=== PATIENT | female | born 1970 | race Caucasian/White ===

== ENCOUNTER → 2018-05-25 13:18 | Outpatient (CLI) | payer OTHER, SELFPAY ==
--- NOTE | 2018-05-25 | DI.MG.S_ITS ---
BILATERAL DIGITAL SCREENING MAMMOGRAM 3D/2D WITH CAD: 05/25/2018 CLINICAL: Routine screening. Comparison is made to exams dated: 12/31/2014 mammogram, 07/15/2016 mammogram - [facility], and 06/12/2013 mammogram - [facility]. The tissue of both breasts is extremely dense, which lowers the sensitivity of mammography. Current study was also evaluated with a Computer Aided Detection (CAD) system. No significant masses, calcifications, or other findings are seen in either breast. There has been no significant interval change. IMPRESSION: NEGATIVE There is no mammographic evidence of malignancy. A 1 year screening mammogram is recommended. This exam was interpreted at Station ID: [id number]. NOTE: For mammograms, a report in lay terms will be sent to the patient. Approximately 15% of breast malignancies will not be visualized mammographically. In the management of a palpable breast mass, a negative mammogram must not discourage biopsy of a clinically suspicious lesion. Electronically Signed By: Ese dey/ruth:05/25/2018 16:11:25 copy to: MARCEL LUEVANO letter sent: Normal Exam ACR BI-RADS Category 1: Negative [id number]
== END ==
PROVIDERS: Family Provider Internal Medicine; PCP Internal Medicine; Visit Provider General Practice
DX: Z12.31 Encounter for screening mammogram for malignant neoplasm of breast (principal)
CPT/HCPCS: 77063; 77067

== ENCOUNTER → 2020-09-17 08:31 | Outpatient (CLI) | payer OTHER, SELFPAY | PROVIDERS: Family Provider Internal Medicine; PCP Internal Medicine; Referring Provider Internal Medicine; Visit Provider Internal Medicine | DX: Z12.31 Encounter for screening mammogram for malignant neoplasm of breast (principal); Z53.9 Procedure and treatment not carried out, unspecified reason ==

== ENCOUNTER → 2021-10-12 14:28 | Outpatient (CLI) | payer OTHER, SELFPAY | PROVIDERS: Family Provider Internal Medicine; PCP Internal Medicine; Visit Provider Physician Assistant | DX: N34.3 Urethral syndrome, unspecified (principal) | CPT/HCPCS: 87077; 87086; 87186 ==

== ENCOUNTER 2022-06-02 11:00 | Emergency (ER) | payer OTHER, SELFPAY ==
[2022-06-02] VITALS (16 sets, daily range): BP systolic 129–150; BP diastolic 87–99; PULSE 67–89; RESP 15–24; TEMP 36.8; O2SAT 95–98; BMI 25.4
--- NOTE | 2022-06-02 11:09 | DI.RAD.S_ITS ---
PROCEDURE: XR CHEST 1V INDICATIONS: chest pain TECHNIQUE: One view of the chest was acquired. COMPARISON: None. FINDINGS: Surgical changes and devices: None. Lungs and pleura: Lungs are clear. No pleural effusions or pneumothorax. Mediastinum: Mediastinal contours appear normal. Heart size is normal. Bones and chest wall: No suspicious bony lesions. Overlying soft tissues appear unremarkable. IMPRESSION: No acute cardiopulmonary findings. Dictated by: Ese Freedman M.D. on 06/02/2022 at 11:34 Approved by: Ese Freedman M.D. on 06/02/2022 at 11:34
[2022-06-02] MEDS: ASPIRIN 81 MG CHEW TAB 324 MG PO (11:39)
[2022-06-02 11:46] LABS: Add Manual Diff / Slide Review NO; Basophils Absolute Auto 100 /uL (0-100); Basophils Percent Auto 1.2 % (0-2); Eosinophils Absolute Auto 200 /uL (0-450); Eosinophils Percent Auto 3.4 % (2-4); Hematocrit 46.1 % (36-46); Hemoglobin 15.9 g/dL (12.0-16.0); Lymphocytes Absolute Auto 2100 /uL (1100-4500); Lymphocytes Percent Auto 31.9 % (25-40); Mean Corpuscular HGB Conc 34.5 % (30-36); Mean Corpuscular Hemoglobin 30.3 PG (26-34); Mean Corpuscular Volume 87.8 fL (80-100); Monocytes Absolute Auto 600 /uL (0-900); Monocytes Percent Auto 9.1 % (3-14); Neutrophils Absolute Auto 3500 /uL (1500-7000); Neutrophils Percent Auto 54.4 % (50-75); Platelet Count 254 X10^3/uL (150-400); Red Blood Cell Count 5.26 X10^6/uL (4.0-5.2); Red Cell Distribution Width 14.5 % (11.6-14.8); White Blood Cell Count 6.5 X10^3/uL (4.5-11.0)
[2022-06-02 12:13] LABS: INR 0.9 (0.9-1.3); Prothrombin Time 10.8 SECONDS (10.1-12.7)
[2022-06-02 12:16] LABS: PTT Partial Thromboplastin Tim 38 SECONDS (26-36)
[2022-06-02 12:21] LABS: Alanine Aminotransferase 17 IU/L (<35); Albumin 4.4 g/dL (3.5-5.0); Albumin Globulin Ratio 1.3 (1.0-2.8); Alkaline Phosphatase 109 U/L (38-126); Aspartate Aminotransferase 26 IU/L (14-36); BUN Creatinine Ratio 15.5 (6-22); Bilirubin Total 0.5 mg/dL (0.2-1.3); Blood Urea Nitrogen 11 mg/dL (7-17); Calcium 8.6 mg/dL (8.4-10.2); Carbon Dioxide 25 mmol/L (22-32); Chloride 106 mmol/L (98-107); Creatine Kinase 65 U/L (30-135); Estimated Glomerular Filt Rate > 60 mL/min (>60); Globulin 3.5 g/dL (1.7-4.1); Glucose 93 mg/dL (70-100); HEMOLYSIS < 15 (0-50); Lipase 188 U/L (23-300); Potassium 3.9 mmol/L (3.4-5.1); Sodium 139 mmol/L (137-145); Total Protein 7.9 g/dL (6.3-8.2)
[2022-06-02 12:31] LABS: Troponin I < 0.012 ng/mL (0.01-0.034)
[2022-06-02 12:40] LABS: COVID19 -Nasal RAPID Negative (Negative)
[2022-06-02 14:32] LABS: Troponin I < 0.012 ng/mL (0.01-0.034)
--- NOTE | 2022-06-07 09:41 | ED_ITS ---
HPI - Chest Pain General Chief Complaint: Chest Pain Stated Complaint: thinks she is having a heart or aniexty attack Time Seen by Provider: 06/02/22 11:32 Source: patient Mode of arrival: Ambulatory Limitations: no limitations History of Present Illness HPI narrative: 52-year-old female presenting with chest pain that she describes as a central, nonexertional, nonradiating pain. Patient describes symptoms coming on at rest. Concern for primary cardiac process or anxiety. Patient does have a history of anxiety in the past. No prior known cardiac disease. Symptoms significantly improved on presentation to the emergency department. Related Data Previous Rx's Medication Instructions Recorded diazepam 5 mg tablet (Valium) 5 mg PO HSP PRN #14 tabs 07/16/17 ibuprofen 600 mg tablet 600 mg PO Q8HP PRN #20 tabs 07/16/17 phenazopyridine 200 mg tablet 200 mg PO TID PRN pain 6 doses #6 10/12/21 (Pyridium) tabs Allergies Allergy/AdvReac Type Severity Reaction Status Date / Time fluticasone [From Flonase] AdvReac Intermediate Nose Bleed Verified 06/02/22 11:13 bacitracin AdvReac Unknown Verified 06/02/22 11:13 tree tea oil AdvReac Unknown Uncoded 06/02/22 11:08 Patient History Social History Smoking Status: Former smoker Smoking Status: Former smoker alcohol intake frequency: holidays/special occasions only Substance Use Type: does not use Exam Narrative Exam Narrative: Vitals reviewed. Nursing note reviewed Constitutional: interactive HENT: Moist mucous membranes EYES: No scleral icterus NECK: no masses CV: Well perfused peripherally, no cyanosis present PULM: Unlabored respirations, symmetric chest rise ABD: Non-distended MS: No gross deformities, no asymmetric edema noted SKIN: Warm and dry. PSYCH: Appropriate affect NEURO: Follows simple commands, moves extremities, interactive with exam Initial Vital Signs Initial Vital Signs: Vital Signs Temperature 98.3 F 06/02/22 11:03 Pulse Rate 89 06/02/22 11:03 Respiratory Rate 20 06/02/22 11:03 Blood Pressure 150/99 H 06/02/22 11:03 Pulse Oximetry 98 06/02/22 11:03 Oxygen Delivery Method Room Air 06/02/22 11:03 Course Orders Ordered: Discontinued Medications Aspirin (Aspirin 81 Mg Chew Tab) 324 mg PO NOW ONE Stop: 06/02/22 11:10 Last Admin: 06/02/22 11:39 Dose: 324 mg Documented By: KRISTI MDM - Chest Pain Lab Data 06/02/22 11:37 06/02/22 11:37 Labs: Lab Results 06/02/22 06/02/22 06/02/22 Range/Units 11:37 11:37 11:45 WBC 6.5 (4.5-11.0) X10^3/uL RBC 5.26 H (4.0-5.2) X10^6/uL Hgb 15.9 (12.0-16.0) g/dL Hct 46.1 H (36-46) % MCV 87.8 (80-100) fL MCH 30.3 (26-34) PG MCHC 34.5 (30-36) % RDW 14.5 (11.6-14.8) % Plt Count 254 (150-400) X10^3/uL Neut % (Auto) 54.4 (50-75) % Lymph % (Auto) 31.9 (25-40) % [place] % (Auto) 9.1 (3-14) % Eos % (Auto) 3.4 (2-4) % Baso % (Auto) 1.2 (0-2) % Neut # (Auto) 3500 (2282-5291) /uL Lymph # (Auto) 2100 (5038-2498) /uL [place] # (Auto) 600 (0-900) /uL Eos # (Auto) 200 (0-450) /uL Baso # (Auto) 100 (0-100) /uL PT (10.1-12.7) SECONDS INR (0.9-1.3) APTT (26-36) SECONDS Sodium 139 (137-145) mmol/L Potassium 3.9 (3.4-5.1) mmol/L Chloride 106 (98-107) mmol/L Carbon Dioxide 25 (22-32) mmol/L BUN 11 (7-17) mg/dL Creatinine 0.71 (0.52-1.04) mg/dL Estimated GFR > 60 (>60) mL/min BUN/Creatinine Ratio 15.5 (6-22) Glucose 93 (70-100) mg/dL Calcium 8.6 (8.4-10.2) mg/dL Magnesium 2.0 (1.6-2.3) mg/dL Total Bilirubin 0.5 (0.2-1.3) mg/dL AST 26 (14-36) IU/L ALT 17 (<35) IU/L Alkaline Phosphatase 109 (38-126) U/L Total Creatine Kinase 65 (30-135) U/L CK-MB (CK-2) TNP CK-MB (CK-2) Rel Index TNP Troponin I < 0.012 (0.01-0.034) ng/mL Total Protein 7.9 (6.3-8.2) g/dL Albumin 4.4 (3.5-5.0) g/dL Globulin 3.5 (1.7-4.1) g/dL Albumin/Globulin Ratio 1.3 (1.0-2.8) Lipase 188 (23-300) U/L SARS-CoV-2 (PCR) Negative (Negative) 06/02/22 06/02/22 Range/Units 11:50 14:00 WBC (4.5-11.0) X10^3/uL RBC (4.0-5.2) X10^6/uL Hgb (12.0-16.0) g/dL Hct (36-46) % MCV (80-100) fL MCH (26-34) PG MCHC (30-36) % RDW (11.6-14.8) % Plt Count (150-400) X10^3/uL Neut % (Auto) (50-75) % Lymph % (Auto) (25-40) % [place] % (Auto) (3-14) % Eos % (Auto) (2-4) % Baso % (Auto) (0-2) % Neut # (Auto) (7041-9994) /uL Lymph # (Auto) (7470-7233) /uL [place] # (Auto) (0-900) /uL Eos # (Auto) (0-450) /uL Baso # (Auto) (0-100) /uL PT 10.8 (10.1-12.7) SECONDS INR 0.9 (0.9-1.3) APTT 38 H (26-36) SECONDS Sodium (137-145) mmol/L Potassium (3.4-5.1) mmol/L Chloride (98-107) mmol/L Carbon Dioxide (22-32) mmol/L BUN (7-17) mg/dL Creatinine (0.52-1.04) mg/dL Estimated GFR (>60) mL/min BUN/Creatinine Ratio (6-22) Glucose (70-100) mg/dL Calcium (8.4-10.2) mg/dL Magnesium (1.6-2.3) mg/dL Total Bilirubin (0.2-1.3) mg/dL AST (14-36) IU/L ALT (<35) IU/L Alkaline Phosphatase (38-126) U/L Total Creatine Kinase (30-135) U/L CK-MB (CK-2) CK-MB (CK-2) Rel Index Troponin I < 0.012 (0.01-0.034) ng/mL Total Protein (6.3-8.2) g/dL Albumin (3.5-5.0) g/dL Globulin (1.7-4.1) g/dL Albumin/Globulin Ratio (1.0-2.8) Lipase (23-300) U/L SARS-CoV-2 (PCR) (Negative) Urine Dip Bedside Urine Glucose Negative Bedside Urine Bilirubin - Negative Bedside Urine Ketone - Negative Urine Specific [place] 1.010 Bedside Urine Occult Blood - Negative Bedside Urine pH 6.0 Bedside Urine Protein - Negative Bedside Urine Urobilinogen - Negative Bedside Urine Nitrite - Negative Bedside Urine Leukocytes - Negative Esterase MDM Narrative Medical decision making narrative: 52-year-old female presenting with chest pain. On presentation, vital signs reassuring. Physical exam notable for well-appearing 52-year-old female in no acute distress, resolving symptoms, reassuring cardiopulmonary exam, benign abdomen. Initial concern for ACS, pulmonary embolism, infectious etiology, stress response, pneumothorax, mass lesion, MSK strain, medication effect. EKG obtained at presentation without evidence of acute ischemia on my initial read, initial troponin and delta troponin are not detectable and patient with resolution of symptoms in the emergency department arguing against ACS. Patient is without tachycardia, tachypnea, hypoxemia, or clear risk factors for pulmonary embolism and further evaluation for PE was deferred. Chest x-ray wit hout evidence of acute pathology. On repeat evaluation, patient continues to have reassuring bedside exam. Discussed findings with patient and family member at bedside. Patient was offered admission to facilitate stress testing versus discharge and close outpatient follow up. After discussion, patient elected to discharge and follow up in the outpatient setting to pursue stress testing. Return precautions were discussed Discharge Plan Departure Patient Disposition: Home Clinical Impression: Chest pain Instructions: DI for Chest Pain Activity Restrictions/Additional Instructions: *You have been diagnosed with [ ] *What to do: Please follow up in the outpatient setting to discuss further evaluation with stress testing with her primary care provider. You declined to stay in the e mergency department to facilitate further evaluation with stress testing. If you have recurrent symptoms, please return to the emergency department as we discussed. *Please follow up with your primary care provider in 2-3 days, call for an appointment. Let them know you were seen in the Emergency Department and that we ask that you be seen in follow up. Prescriptions: No Action phenazopyridine [Pyridium] 200 mg tablet 200 mg PO TID PRN (Reason: pain) Qty: 6 0RF ibuprofen 600 MG tablet 600 mg PO Q8HP PRNQty: 20 0RF diazepam [Valium] 5 MG tablet 5 mg PO HSP PRNQty: 14 0RF Referrals: Itzel Beyer MD [Primary Care Provider] - Stand Alone Forms: Patient Portal/API
== END 2022-06-02 16:58 | disposition home or self-care (01) ==
PROVIDERS: Emergency Medicine; Emergency Provider Emergency Medicine; Family Provider Internal Medicine; PCP Family Medicine
DX: R07.9 Chest pain, unspecified (principal); Z20.822 Contact with and (suspected) exposure to COVID-19
CPT/HCPCS: 36415; 71045; 80053; 81003; 82550; 83690; 83735; 84484; 85025; 85610; 85730; 87635; 93005; 99284; C9803

== ENCOUNTER → 2022-10-28 09:27 | Outpatient (CLI) | payer OTHER, SELFPAY ==
--- NOTE | 2022-10-28 | DI.MG.S_ITS ---
Patient is self-referred. BILATERAL DIGITAL SCREENING MAMMOGRAM 3D/2D WITH CAD: 10/28/2022 CLINICAL: Routine screening. Comparison is made to exams dated: 05/25/2018 mammogram, 07/15/2016 mammogram, 01/21/2015 mammogram, and 12/31/2014 mammogram - [facility]. Both breasts are heterogeneously dense, which may obscure small masses (category c / 51-75% glandular tissue). Current study was also evaluated with a Computer Aided Detection (CAD) system. There are benign calcifications in both breasts. There also is a biopsy clip in the right breast. No significant masses, calcifications, or other findings are seen in either breast. There has been no significant interval change. IMPRESSION: BENIGN There is no mammographic evidence of malignancy. A 1 year screening mammogram is recommended. Based on the Tyrer Cuzick model (a risk assessment model) the patient's lifetime risk is 18.1% and her 10 year risk is 4.6%. According to the ACR, ACS, and NCCN guidelines, an annual breast MRI exam along with mammogram is recommended if the patient's lifetime risk is 20% or greater. This exam was interpreted at Station ID: [id number]. NOTE: For mammograms, a report in lay terms will be sent to the patient. Approximately 15% of breast malignancies will not be visualized mammographically. In the management of a palpable breast mass, a negative mammogram must not discourage biopsy of a clinically suspicious lesion. Electronically Signed By: Christie rolon/ruth:10/28/2022 15:40:30 copy to: LACEY ROBBINS letter sent: Normal Exam ACR BI-RADS Category 2: Benign Finding(s) 3342F
== END ==
PROVIDERS: Family Provider Internal Medicine; PCP Family Medicine; Referring Provider Family Medicine; Visit Provider Family Medicine
DX: Z12.31 Encounter for screening mammogram for malignant neoplasm of breast (principal)
CPT/HCPCS: 77063; 77067

== ENCOUNTER 2023-04-17 09:03 | Day surgery (SDC) | payer OTHER, SELFPAY ==
[2023-04-17] VITALS (7 sets, daily range): BP systolic 122–137; BP diastolic 75–93; PULSE 77–90; RESP 11–16; TEMP 36.7–37.1; O2SAT 96–99; BMI 25.4
--- NOTE | 2023-04-17 | PATH_ITS ---
[facility] Accession Number: [id number] No. of containers..02 Tissue . 01 Material submitted: . PART A: gastrointestinal site - ANTRUM PART B: esophagus - ESOPHAGEAL . 01 Diagnosis: A. Gastric Antrum, Biopsy: Gastric antral and body mucosa with minimal chronic inflammation. Negative for Helicobacter organisms by immunohistochemistry. Negative for intestinal metaplasia. Negative for dysplasia and malignancy. . B. Esophagus, Biopsy: Squamous mucosa with no diagnostic abnormality. Intraepithelial eosinophils are not increased. Negative for dysplasia and malignancy. [facility] 04/21/2023 1135 Local . 01 Electronically signed: . Dio Hill MD, PhD, Pathologist NPI- [id number] . 01 Gross description: . Part A: ANTRUM: Received in formalin are 2 fragment(s) of bhatti, soft tissue measuring 0.1 x 0.1 x 0.1 cm to 0.4 x 0.4 x 0.2 cm submitted entirely in 1 cassette(s) Part B: ESOPHAGEAL: Received in formalin are 2 fragment(s) of bhatti, soft tissue measuring 0.2 x 0.2 x 0.1 cm to 0.3 x 0.2 x 0.2 cm submitted entirely in 1 cassette(s) /MARLENY 04/19/2023 1941 Local . 01 Microscopic: . A. An immunohistochemical stain was performed to evaluate for Helicobacter organisms and is negative. The control stain showed appropriate reactivity. . . * This test was developed and its performance characteristics determined by [facility]. It has not been cleared or approved by the U.S. Food and Drug Administration. The FDA has determined that such clearance or approval is not necessary. This test is used for clinical purposes. It should not be regarded as investigational or for research. . 01 Pathologist provided ICD-10: K29.70, R10.11, R12 . 01 CPT . 453795, 758017, W25677 Specimen Comment: A courtesy copy of this report has been sent to [phone] Performed at: 01 [facility] [address] [place] [address], [place], [place] [id number] MD Chaz Rojas MD Phone: [phone]
[2023-04-17] MEDS: LACTATED RINGERS 1,000 ML 42 ML IV (09:46)
--- NOTE | 2023-04-17 10:44 | P.HP_ITS ---
History of Present Illness History of Present Illness Date Patient Seen: 04/17/23 Time Patient Seen: 10:44 Chief complaint: SDC Narrative: 53-year-old female with refractory reflux symptoms here for upper endoscopy and colonoscopy for colon cancer screening. She is actually doing quite well with simply dietary manipulation. She stopped the famotidine is not on any proactive anti-reflux therapy. She had 1 spell of reflux last week and treated this with some almond milk. She started a new job has not been able to get the imaging that was requested in the office. [facility] Social History household members: spouse Smoking Status: Former smoker alcohol intake: current Meds Home Medications and Allergies Home Medications Medication Instructions Recorded Confirmed Type cholecalciferol (vitamin D3) 25 25 mcg PO DAILY 04/17/23 04/17/23 History mcg (1,000 unit) capsule (Vitamin D3) flaxseed 1,000 mg capsule 1,000 mg PO DAILY 04/17/23 04/17/23 History Allergies Allergy/AdvReac Type Severity Reaction Status Date / Time fluticasone [From Flonase] AdvReac Intermediate Nose Bleed Verified 04/17/23 09:37 bacitracin AdvReac Unknown Verified 04/17/23 09:37 tree tea oil AdvReac Unknown Uncoded 01/25/23 10:52 Review of Systems Review of Systems ROS: Yes All systems reviewed with the patient and are negative except as otherwise documented Exam Vital Signs (past 8 hours): - 04/17/23 09:44 Temperature 98.5 F Pulse Rate 88 Respiratory Rate 16 Blood Pressure 130/92 H Pulse Oximetry 99 Oxygen Delivery Method Room Air Oxygen Delivery Method Room Air Const General: cooperative HENMT Head: normal to inspection Eyes General: appearance normal, both eyes and all related structures Neck Neck: normal visual inspection Chest Chest: normal inspection of the chest Resp Effort & Inspection: normal respiratory effort Cardio Rate: regular rate GI Inspection: normal to inspection Skin General: no rashes or lesions noted Neuro General: patient alert and patient awake Extrem General: normal to inspection and no pedal edema Psych Appearance: grossly normal Assessment & Plan Assessment & Plan narrative: 53-year-old female with refractory reflux symptoms. Diagnostic EGD and screening colonoscopy are pursued today.
--- NOTE | 2023-04-17 10:46 | PM.PREOP ---
Pre-operative Note Interval Note History & Physical reviewed/Exam performed by Physician: Yes Changes to H&P: No ASA Class (for procedural sedation): I
--- NOTE | 2023-04-17 11:49 | PM.OP.EC ---
Operative Date/Time/Diagnoses Date of procedure: 04/17/23 Time of procedure: 11:49 Pre-op diagnosis: Refractory reflux symptoms. Colon cancer screening. Post-op diagnosis: same Procedure & Clinicians Study performed: EGD with biopsies and colonoscopy Same procedure as scheduled: Yes Indications: Refractory reflux symptoms. Colon cancer screening. Surgeon: Sergio Mathew Procedure Notes SCOAP/Timeout: Done Procedure in detail: After the risks and benefits were explained, written and verbal informed consent was obtained. The patient was brought into the procedure room and placed into the left lateral decubitus position. Please see anesthesia notes for sedation details. The scope was introduced into the mouth through the bite block and advanced under direct visualization to the 2nd portion of the duodenum. The scope was slowly withdrawn carefully examining the mucosa for any defects or lesions. Retroflexed views were accomplished in the stomach. The stomach was decompressed, the scope was then removed from the patient who tolerated the procedure well. The patient was then turned around. A digital rectal examination was accomplished. No significant pathology appreciated. Perhaps grade 1 internal hemorrhoids. The scope was introduced into the rectum and advanced to the cecum as identified by the appendiceal orifice and ileocecal valve. The scope was slowly withdrawn to carefully examine the mucosa for any defects or lesions. Multiple direct views were made through the dentate line for exclusion of pathology. The colon was decompressed. The scope was removed from the patient who tolerated the procedure well. Pediatric colonoscope Bowel prep adequate Scope withdrawal time: 6 minutes Sedation minutes: 26 Complications: none Impression: 1. Duodenum: No significant pathology was appreciated from the bulb through to the 2nd portion. 2. Stomach: No ulcers no outlet obstruction no mass lesions. Patient had a mild diffuse gastropathy and therefore biopsies were taken from the antrum for exclusion of H pylori or other pathology. Retroflexed views of the LES revealed a Hill valve grade 2. 3. Esophagus: The squamocolumnar junction correlated with the top of the gastric folds. The GE junction was at approximately 35 cm from the incisors. Patient had evidence of a very subtle case of LA grade A erosive esophagitis. In the mid esophagus there was a subtle finding of tightly group circumferential folds. This is not uncommonly seen in patients with the eosinophilic esophagitis and I therefore took midesophageal biopsies to screen for this possibility. Subtle sliding hiatal hernia was noted. 4. Colon: No significant polyps mass lesions or inflammatory features identified throughout. Mild grade 1 hemorrhoids as described above. There was some very subtle scattered diverticulosis noted in the sigmoid region. Endoscopic diagnosis 1. Very subtle sliding hiatal hernia 2. LA grade A erosive esophagitis 3. Possible eosinophilic esophagitis 4. Gastropathy 5. Mild colonic diverticulosis 6. Grade 1 hemorrhoids 7. Otherwise visually unremarkable colonoscopy Post-procedure Plan for aftercare: 1. Await histology. 2. Continue anti-reflux therapy 3. Repeat colonoscopy for colon cancer screening in 10 years' time. 4. Proceed with imaging as previously discussed in clinic. Disposition: PACU
== END 2023-04-17 12:20 | disposition home or self-care (01) ==
PROVIDERS: Family Provider Internal Medicine; PCP Nurse Practitioner Family; Referring Provider Internal Medicine Gastroenterology; Visit Provider Internal Medicine Gastroenterology
PROC: 0DJ08ZZ Inspection of Upper Intestinal Tract, Via Natural or Artificial Opening Endoscopic (ICD-10-PCS; CPT 43235; principal; 2023-04-17 10:30)
PROC: 0DJD8ZZ Inspection of Lower Intestinal Tract, Via Natural or Artificial Opening Endoscopic (ICD-10-PCS; CPT 45378; 2023-04-17 10:30)
DX: Z12.11 Encounter for screening for malignant neoplasm of colon (principal); R12 Heartburn; K44.9 Diaphragmatic hernia without obstruction or gangrene; K20.80 Other esophagitis without bleeding; K31.9 Disease of stomach and duodenum, unspecified; K57.30 Diverticulosis of large intestine without perforation or abscess without bleeding; K64.0 First degree hemorrhoids; K29.50 Unspecified chronic gastritis without bleeding
CPT/HCPCS: 45378; 43239; J2704

== ENCOUNTER → 2023-06-18 13:21 | Outpatient (CLI) | payer OTHER, SELFPAY | PROVIDERS: Family Provider Internal Medicine; PCP Nurse Practitioner Family; Visit Provider Physician Assistant Surgical | DX: R10.9 Unspecified abdominal pain (principal) | CPT/HCPCS: 87077; 87086; 87186 ==

== ENCOUNTER → 2023-12-22 12:19 | Outpatient (CLI) | payer OTHER, SELFPAY | PROVIDERS: Family Provider Internal Medicine; PCP Nurse Practitioner Family; Visit Provider Physician Assistant Surgical | DX: R30.0 Dysuria (principal); N89.8 Other specified noninflammatory disorders of vagina | CPT/HCPCS: 87086; 87210 ==

== ENCOUNTER → 2024-03-30 08:08 | Outpatient (CLI) | payer OTHER, SELFPAY ==
--- NOTE | 2024-03-30 | DI.MG.S_ITS ---
BILATERAL DIGITAL SCREENING MAMMOGRAM 3D/2D WITH CAD: 03/30/2024 CLINICAL: Routine screening. Comparison is made to exams dated: 10/28/2022 mammogram, 05/25/2018 mammogram, and 07/15/2016 mammogram - [facility]. The breasts are heterogeneously dense, which may obscure small masses (category c / 51-75% glandular tissue). Current study was also evaluated with a Computer Aided Detection (CAD) system. There are benign calcifications in both breasts. There also is a biopsy clip in the right breast. No significant masses, calcifications, or other findings are seen in either breast. There has been no significant interval change. IMPRESSION: BENIGN There is no mammographic evidence of malignancy. A 1 year screening mammogram is recommended. Based on the Tyrer Cuzick model (a risk assessment model) the patient's lifetime risk is 18.6% and her 10 year risk is 5.2%. According to the ACR, ACS, and NCCN guidelines, an annual breast MRI exam along with mammogram is recommended if the patient's lifetime risk is 20% or greater. This exam was interpreted at Station ID: [id number]. NOTE: For mammograms, a report in lay terms will be sent to the patient. Approximately 15% of breast malignancies will not be visualized mammographically. In the management of a palpable breast mass, a negative mammogram must not discourage biopsy of a clinically suspicious lesion. Electronically Signed By: Munir skinner/ruth:04/01/2024 07:28:57 copy to: LACEY ROBBINS letter sent: Normal Exam ACR BI-RADS Category 2: Benign
== END ==
LOC: MAMMO 08:08
PROVIDERS: Family Provider Internal Medicine; PCP Nurse Practitioner Family; Referring Provider Nurse Practitioner Family; Visit Provider Nurse Practitioner Family
DX: Z12.31 Encounter for screening mammogram for malignant neoplasm of breast (principal); R92.333 Mammographic heterogeneous density, bilateral breasts
CPT/HCPCS: 77063; 77067

== ENCOUNTER 2024-10-07 09:31 | Emergency (ER) | payer OTHER, SELFPAY ==
[2024-10-07 09:40] VITALS: BP 140/91; PULSE 81; RESP 20; TEMP 36.4; O2SAT 97; BMI 27.1
--- NOTE | 2024-10-07 09:43 | EKG_ITS ---
[address] [address] Test Date: 2024-10-07 Pat Name: Jonna Landeros Department: Room: Gender: Female [place]: MAMIE : 1970 Requested By: Order Number: [id number] Reading MD: Dakota Laguerre MD Measurements Intervals [place] Rate: 77 P: 68 IN: 146 QRS: 70 QRSD: 78 T: 59 QT: 394 QTc: 445 Interpretive Statements Normal sinus rhythm with sinus arrhythmia Cannot rule out Anterior infarct , age undetermined Electronically Signed On 10-07-2024 11:46:12 PDT by Dakota Laguerre MD
--- NOTE | 2024-10-07 09:48 | DI.RAD.S_ITS ---
PROCEDURE: XR CHEST 1V INDICATIONS: Chest Pain TECHNIQUE: One view of the chest was acquired. COMPARISON: [facility], CR, XR CHEST 1V, 06/02/2022, 11:12. FINDINGS: Surgical changes and devices: None. Lungs and pleura: Lungs are clear. No pleural effusions or pneumothorax. Mediastinum: Mediastinal contours appear normal. Heart size is normal. Bones and chest wall: No suspicious bony lesions. Overlying soft tissues appear unremarkable. IMPRESSION: No acute cardiopulmonary abnormality is seen. Approved by: Guillermo Ortiz M.D. on 10/07/2024 at 10:37
--- NOTE | 2024-10-07 09:52 | ED_ITS ---
HPI - Abdominal Pain General Chief Complaint: Abdominal Pain Stated Complaint: gallbladder Attack x 1 day Time Seen by Provider: 10/07/24 09:34 Source: patient Mode of arrival: Ambulatory History of Present Illness HPI narrative: 54-year-old female history of erythrocytosis on aspirin presents with numerous bouts of nonbilious nonbloody nausea vomiting yesterday after eating a fatty fatty greasy meal with pain radiating to the lower right flank region. Patient had 2 normal bowel movements this morning and took some Pepcid with no significant relief of her symptoms. Patient denies fever, chills, bodyaches, diarrhea, urinary symptoms, chest pain, cough, shortness of breath. Other than what is stated 14 point review of systems negative. Related Data Home Medications ?Medication ?Instructions ?Recorded ?Confirmed cholecalciferol (vitamin D3) 25 25 mcg PO DAILY 05/03/24 mcg (1,000 unit) capsule (Vitamin D3) flaxseed 1,000 mg capsule 1,000 mg PO DAILY 04/17/23 0 05/03/24 aspirin 81 mg tablet,delayed 81 mg PO DAILY 05/08/24 0 05/08/24 release Previous Rx's ?Medication ?Instructions ?Recorded progesterone micronized 100 mg 100 mg PO QAM #30 caps 02/09/24 capsule (Prometrium) estradiol 0.0375 mg/24 hr 1 patch transdermal 2XW #24 ea 05/08/24 semiweekly transdermal patch estradiol 10 mcg vaginal tablet 10 mcg vaginal 2XW #24 tabs 05/08/24 (Yuvafem) estradiol 2 mg (7.5 mcg/24 hour) 1 vag ring vaginal Q3 MONTHS #1 ea 09/05/24 vaginal ring (Estring) hydrocodone 5 mg-acetaminophen 325 1 tab PO Q4-6H PRN pain #20 tabs 10/07/24 mg tablet ondansetron 4 mg disintegrating 4 mg PO Q8H PRN nausea and 10/07/24 tablet vomiting #30 tabs tamsulosin 0.4 mg capsule (Flomax) 0.4 mg PO DAILY #30 caps 10/07/24 Allergies Allergy/AdvReac Type Severity Reaction Status Date / Time crab Allergy Unknown Hives Verified 10/07/24 09:42 red (food color) Allergy Unknown Rash Verified 10/07/24 09:42 fluticasone (From Flonase) AdvReac Intermediate Nose Bleed Verified 10/07/24 09:42 bacitracin AdvReac Unknown Rash Verified 10/07/24 09:42 tree tea oil AdvReac Unknown Rash Uncoded 10/07/24 09:42 Review of Systems Review of Systems ROS Unobtainable: All systems reviewed & are unremarkable except as noted in HPI and below Patient History Social History household members: spouse Smoking Status: Former smoker alcohol intake: current Smoking Status: Former smoker alcohol intake frequency: a few times a month Exam Narrative Exam Narrative: GENERAL: [54] year old patient appears stated age. Well-developed patient, in mild distress. HEAD: Atraumatic. Normocephalic. EYES: Pupils equal round and reactive. Extraocular motions intact. No scleral icterus. No injection or drainage. ENT: Nose without bleeding, purulent drainage. Throat without erythema, tonsillar hypertrophy or exudate. Airway patent. NECK: Trachea midline. Non tender CARDIOVASCULAR: Regular rate and rhythm without murmurs, gallops, or rubs. RESPIRATORY: Clear to auscultation. Breath sounds equal bilaterally. No wheezes, rales, or rhonchi. GASTROINTESTINAL: Abdomen soft, RUQ TTp but no r/r/g, nondistended. EXTREMITIES: No edema or joint tenderness. BACK: Nontender without deformity or crepitance. No flank tenderness. NEURO: AOx3. SKIN: No rash or erythema of visible areas Initial Vital Signs Initial Vital Signs: Vital Signs Temperature 97.5 F L 10/07/24 09:40 Pulse Rate 81 10/07/24 09:40 Respiratory Rate 20 10/07/24 09:40 Blood Pressure 140/91 H 10/07/24 09:40 Pulse Oximetry 97 10/07/24 09:40 Oxygen Delivery Method Room Air 10/07/24 09:40 Course Orders Ordered: ED Orders 10/07/24 09:45 Complete Blood Count AUTO DIFF Stat Comprehensive Metabolic Panel Stat Lipase Stat Magnesium Stat NT-proBNP (BNP-Adult 18+) Stat PTT Partial Thromboplastin Christiano Stat Prothrombin Time INR Stat Troponin & CK Cardiac Panel Stat 10/07/24 09:48 XR chest 1V Stat EKG-12 Lead Stat 10/07/24 09:52 CT abdomen pelvis w con Stat 10/07/24 10:15 Urine Microscopic Stat Lactated Ringer's (Lactated Ringers) 1,000 mls @ 1,000 mls/hr IV BOLUS ONE Stop: 10/07/24 10:52 Last Admin: 10/07/24 10:28 Dose: 1,000 mls/hr Documented By: BT Discontinued Medications Diazepam (Diazepam 10 Mg/2 Ml Syringe) 2 mg IV NOW ONE Stop: 10/07/24 09:53 Last Admin: 10/07/24 09:58 Dose: Not Given Documented By: BT Vital Signs Vital signs: Vital Signs - 8 hr 10/07/24 09:40 Temperature 97.5 F L Pulse Rate 81 Respiratory Rate 20 Blood Pressure 140/91 H Pulse Oximetry 97 Oxygen Delivery Method Room Air MDM - Abdominal Pain Lab Data 10/07/24 09:45 10/07/24 09:45 Labs: Lab Results 10/07/24 10/07/24 Range/Units 09:45 10:15 WBC 6.9 (4.5-11.0) X10^3/uL RBC 5.41 H (4.0-5.2) X10^6/uL Hgb 16.8 H (12.0-16.0) g/dL Hct 48.6 H (36-46) % MCV 89.8 (80-100) fL MCH 31.1 (26-34) PG MCHC 34.6 (30-36) % RDW 14.2 (11.6-14.8) % Plt Count 252 (150-400) X10^3/uL Neut % (Auto) 58.7 (50-75) % Lymph % (Auto) 27.3 (25-40) % [place] % (Auto) 10.2 (3-14) % Eos % (Auto) 2.8 (2-4) % Baso % (Auto) 1.0 (0-2) % Neut # (Auto) 4100 (5071-0326) /uL Lymph # (Auto) 1900 (0848-9896) /uL [place] # (Auto) 700 (0-900) /uL Eos # (Auto) 200 (0-450) /uL Baso # (Auto) 100 (0-100) /uL PT 10.2 (9.4-12.5) SECONDS INR 0.9 (0.9-1.3) APTT 37 H (25.1-36.5) SECONDS Sodium 139 (137-145) mmol/L Potassium 3.9 (3.4-5.1) mmol/L Chloride 106 (98-107) mmol/L Carbon Dioxide 23 (22-32) mmol/L BUN 14 (7-17) mg/dL Creatinine 0.85 (0.52-1.04) mg/dL Estimated GFR > 60 (>60) mL/min BUN/Creatinine Ratio 16.5 (6-22) Glucose 89 (70-99) mg/dL Calcium 8.9 (8.4-10.2) mg/dL Magnesium 2.2 (1.6-2.3) mg/dL Total Bilirubin 0.7 (0.2-1.3) mg/dL AST 31 (14-36) IU/L ALT 19 (<35) IU/L Alkaline Phosphatase 106 (38-126) U/L Total Creatine Kinase 55 (30-135) U/L Troponin I < 0.012 (0.01-0.034) ng/mL NT-Pro-B Natriuret Pep 21 (<125) pg/mL Total Protein 8.1 (6.3-8.2) g/dL Albumin 4.5 (3.5-5.0) g/dL Globulin 3.6 (1.7-4.1) g/dL Albumin/Globulin Ratio 1.3 (1.0-2.8) Lipase 163 (23-300) U/L Urine RBC 5-10/hpf H (0-5/HPF) Urine WBC None seen (0-5/HPF) Ur Squamous Epith Cells None seen (0-5/HPF) Urine Bacteria None seen (None) Ur Culture Indicated? Cult not indicated Vol Urine Centrifuged 10ml (spun) Point of care testing: Urine Dip Bedside Urine Glucose Negative Bedside Urine Bilirubin - Negative Bedside Urine Ketone - Negative Urine Specific [place] 1.005 Bedside Urine Occult Blood +++ Bedside Urine pH 6.5 Bedside Urine Protein - Negative Bedside Urine Urobilinogen - Negative Bedside Urine Nitrite - Negative Bedside Urine Leukocytes - Negative Esterase Imaging Data CT scan - abdomen/pelvis: Radiologist's Impression: [address] [address] [address] Scan Report Signed Patient: Jonna Landeros MR#: [id number] : 1970 Acct:[id number] Age/Sex: 54 / F Date of Service: 10/07/24 Loc: ED Accession Number: [id number] Procedure: CT abdomen pelvis w con Ordering Provider: Dakota Monson D.O. PROCEDURE: CT ABDOMEN PELVIS W CON INDICATIONS: abd pain/n/v TECHNIQUE: After the administration of intravenous contrast, axial sections acquired from the lung bases to the pubic symphysis. Coronal and sagittal reformats were performed. For radiation dose reduction, the following was used: automated exposure control, adjustment of mA and/or kV according to patient size. COMPARISON: None. FINDINGS: Image quality: Diagnostic. Lower Chest: No significant findings. ABDOMEN: Liver: No solid mass. Multiple hypoattenuating lesions in the liver. The larger lesions in segments 3, 4B, and in the caudate lobe measure fluid attenuation compatible with benign cyst. Additional lesions are too small to characterize. Gallbladder: No radiopaque gallstones or wall thickening. Biliary ducts: No biliary dilation. Pancreas: No ductal dilation. Spleen: Size is within normal limits. Adrenal Glands: No adrenal nodules. Kidneys and Ureters: 2 mm nonobstructing calculus at the inferior pole of the right kidney. 5 x 3 mm calculus (940 Hounsfield units) in the proximal to mid right ureter with mild upstream hydronephrosis and hydroureter as well as periureteral fat stranding. Distal portions of the ureter are nondilated. No left hydronephrosis. No solid mass. No complex renal cystic lesion which requires follow up. Stomach and Bowel: Small hiatal hernia. Normal colonic caliber, without significant wall thickening. Normal appendix. Small bowel loops are nondilated. Peritoneum: No abnormal intraperitoneal fluid. No free air. Ventral Wall: Small fat containing periumbilical hernia. Abdominal Nodes: No retroperitoneal or mesenteric adenopathy by size criteria. Vessels: Aorta and inferior vena cava are normal in size. PELVIS: Pelvic Organs: A pessary device is present. Bladder: No bladder wall thickening, accounting for underdistention. Pelvic Nodes: No enlarged lymph nodes. Miscellaneous: No inguinal hernias are seen. Bones: No aggressive osseous abnormality. IMPRESSION: 1. Right proximal to mid ureteral 5 x 3 mm calculus with mild right hydroureteronephrosis. 2. Additional nonobstructing 2 mm right renal calculus. 3. Multiple benign-appearing hepatic cysts. ECG Data Interpretation: NSR HR 77 OK 146 QRS [address]-t wave change No previous ekg to compare MDM Narrative Medical decision making narrative: Vital signs, nurse triage note, medication list, previous ER visits, and all imaging studies reviewed. Patient given Flomax and a strainer and [place] to go home and to follow up with Urology. CT scan shows right proximal to mid ureteral 5 x 3 mm calculus with mild right her right hydro ureteral nephrosis. Additional nonobstructing 2 mm right renal calculus. Benign multiple appearing hepatic cyst. Differential diagnosis includes cholecystitis appendicitis pancreatitis kidney infection kidney stone constipation. Discharge Plan Departure Patient Disposition: Home Clinical Impression: Kidney stone Instructions: DI for Kidney Stones Activity Restrictions/Additional Instructions: Return with new or worsening symptoms. Take your medicines directed. Follow up with Urology referral. Keep hydrated. Prescriptions: New tamsulosin [Flomax] 0.4 mg capsule 0.4 mg PO DAILY Qty: 30 0RF hydrocodone-acetaminophen 5-325 mg tablet 1 tab PO Q4-6H PRN (Reason: pain) Qty: 20 0RF ondansetron 4 mg tablet,disintegrating 4 mg PO Q8H PRN (Reason: nausea and vomiting) Qty: 30 0RF No Action progesterone micronized [Prometrium] 100 mg capsule 100 mg PO QAM Qty: 30 11RF aspirin 81 mg tablet,delayed release (DR/EC) 81 mg PO DAILY estradiol [Yuvafem] 10 mcg tablet 10 mcg vaginal 2XW Qty: 24 3RF estradiol 0.0375 mg/24 hr patch semiweekly 1 patch transdermal 2XW Qty: 24 3RF Rx Instructions: apply patch twice a week to lower abddomen or hip Estring 2 mg (7.5 mcg /24 hour) ring 1 vag ring vaginal [id number] Qty: 1 3RF cholecalciferol (vitamin D3) [Vitamin D3] 25 mcg (1,000 unit) Capsule 25 mcg PO DAILY flaxseed 1,000 mg Capsule 1,000 mg PO DAILY Referrals: Vivian Briones, [facility] [Primary Care Provider, Nursing] Stand Alone Forms: Patient Portal/API
--- NOTE | 2024-10-07 09:58 | PC.NURSE ---
discontinue iv valium per dr lim.
[2024-10-07 09:59] LABS: Add Manual Diff / Slide Review NO; Hematocrit 48.6 % (36-46); Hemoglobin 16.8 g/dL (12.0-16.0); Lymphocytes Absolute Auto 1900 /uL (1100-4500); Mean Corpuscular HGB Conc 34.6 % (30-36); Mean Corpuscular Hemoglobin 31.1 PG (26-34); Mean Corpuscular Volume 89.8 fL (80-100); Platelet Count 252 X10^3/uL (150-400)
[2024-10-07 10:06] LABS: INR 0.9 (0.9-1.3); Prothrombin Time 10.2 SECONDS (9.4-12.5)
[2024-10-07 10:09] LABS: PTT Partial Thromboplastin Tim 37 SECONDS (25.1-36.5)
[2024-10-07 10:10] LABS: Alanine Aminotransferase 19 IU/L (<35); Albumin 4.5 g/dL (3.5-5.0); Albumin Globulin Ratio 1.3 (1.0-2.8); Alkaline Phosphatase 106 U/L (38-126); Blood Urea Nitrogen 14 mg/dL (7-17); Calcium 8.9 mg/dL (8.4-10.2); Carbon Dioxide 23 mmol/L (22-32); Chloride 106 mmol/L (98-107); Creatine Kinase 55 U/L (30-135); Estimated Glomerular Filt Rate > 60 mL/min (>60); Globulin 3.6 g/dL (1.7-4.1); Glucose 89 mg/dL (70-99); HEMOLYSIS < 15 (0-50); Lipase 163 U/L (23-300); Magnesium 2.2 mg/dL (1.6-2.3); Potassium 3.9 mmol/L (3.4-5.1); Sodium 139 mmol/L (137-145); Total Protein 8.1 g/dL (6.3-8.2)
[2024-10-07 10:17] VITALS: PULSE 83; RESP 16
[2024-10-07 10:18] VITALS: BP 140/97; PULSE 80; RESP 17; O2SAT 98
[2024-10-07 10:22] LABS: NT-proBNP (BNP-Adult 18+) 21 pg/mL (<125); Troponin I < 0.012 ng/mL (0.01-0.034)
[2024-10-07] MEDS: LACTATED RINGERS 1,000 ML 1000 ML IV (10:28)
[2024-10-07 10:30] VITALS: PULSE 74; RESP 17; O2SAT 98
[2024-10-07 10:34] VITALS: BP 134/82; PULSE 74; RESP 19; O2SAT 97
[2024-10-07 10:38] LABS: Culture Indicated Urine Cult Not Indicated
[2024-10-07 11:00] VITALS: BP 127/84; PULSE 74; RESP 23; O2SAT 96
--- NOTE | 2024-10-07 11:24 | PC.NURSE ---
sending urine strainer home with patient.
[2024-10-07] MEDS: TAMSULOSIN 0.4 MG CAPSULE PO (11:25)
== END 2024-10-07 11:53 | disposition home or self-care (01) ==
PROVIDERS: Emergency Provider Family Medicine; Family Provider Internal Medicine; PCP Nurse Practitioner Family
DX: N20.0 Calculus of kidney (principal); R10.9 Unspecified abdominal pain
CPT/HCPCS: 36415; 71045; 74177; 80053; 81003; 81015; 82550; 83690; 83735; 83880; 84484; 85025; 85610; 85730; 93005; 93010; 96360; 99284; Q9967

== ENCOUNTER → 2025-01-11 10:15 | Outpatient (CLI) | payer OTHER, SELFPAY ==
[2025-01-11 11:15] LABS: Influenza A - CEPHEID Flu A NEGATIVE (NEGATIVE); Influenza B - CEPHEID Flu B NEGATIVE (NEGATIVE)
[2025-01-11 11:18] LABS: COVID-19 CEPHEID 4-PLEX PCR Negative (Negative)
== END ==
PROVIDERS: Family Provider Internal Medicine; PCP Nurse Practitioner Family; Visit Provider Nurse Practitioner Family
DX: R05.1 Acute cough (principal); J02.9 Acute pharyngitis, unspecified
CPT/HCPCS: 87070; 87147; 87637

== ENCOUNTER → 2025-01-11 10:35 | Outpatient (CLI) | payer OTHER, SELFPAY ==
--- NOTE | 2025-01-11 10:37 | DI.RAD.S_ITS ---
PROCEDURE: XR CHEST 2V INDICATIONS: Cough TECHNIQUE: 2 views of the chest were acquired. COMPARISON: [facility], CR, XR CHEST 1V, 10/07/2024, 9:52. FINDINGS: Surgical changes and devices: None. Lungs and pleura: Lungs are clear. No pleural effusions or pneumothorax. Mediastinum: Mediastinal contours are normal. Heart size is normal. Bones and chest wall: No suspicious bony abnormalities. Soft tissues appear unremarkable. IMPRESSION: No acute cardiopulmonary abnormality is seen. Dictated by: Christie Kirkpatrick M.D. on 01/11/2025 at 21:04 Approved by: Christie Kirkpatrick M.D. on 01/11/2025 at 21:07
== END ==
PROVIDERS: Family Provider Internal Medicine; PCP Registered Nurse; Referring Provider Nurse Practitioner Family; Visit Provider Nurse Practitioner Family
DX: R05.1 Acute cough (principal); J02.9 Acute pharyngitis, unspecified
CPT/HCPCS: 71046; 87070; 87637

== ENCOUNTER → 2025-03-30 09:38 | Outpatient (CLI) | payer OTHER, SELFPAY | PROVIDERS: Family Provider Internal Medicine; PCP Registered Nurse; Visit Provider Chiropractor | DX: R39.15 Urgency of urination (principal) | CPT/HCPCS: 87086 ==